=== PATIENT | female | born 1980 | race Caucasian/White ===

== ENCOUNTER 2022-12-25 10:53 | Outpatient (CLI) | payer BC, SELFPAY ==
[2022-12-25 14:28] LABS: Chloride* 104 mmol/L (96-114); Potassium* 4.2 mmol/L (3.6-5.1); Sodium* 140 mmol/L (135-149)
[2022-12-25 14:30] LABS: Cholesterol* 159 mg/dL (90-199)
[2022-12-25 14:31] LABS: Blood Urea Nitrogen* 22 mg/dL (5-24); Carbon Dioxide* 29 mmol/L (20-32); Estimated Glomerular Filt Rate 73 ml/min; Glucose* 87 mg/dL (60-115); Triglycerides* 130 mg/dL (40-149)
[2022-12-25 14:32] LABS: HDL Cholesterol* 55 mg/dL (>=50); LDL Cholesterol Calculated 78 mg/dL (<100)
== END 2022-12-25 10:54 | disposition home or self-care (01) ==
PROVIDERS: PCP Emergency Medicine; Visit Provider Emergency Medicine
DX: Z00.00 Encounter for general adult medical examination without abnormal findings (principal); Z13.6 Encounter for screening for cardiovascular disorders
CPT/HCPCS: 80048; 80061

== ENCOUNTER 2023-03-20 13:04 | Outpatient (CLI) | payer BC, SELFPAY ==
--- NOTE | 2023-03-20 13:20 | CRLHL7_ITS ---
For Patients: As a result of the Cures Act, medical imaging exams and procedure reports are released immediately into your electronic medical record. You may view this report before your referring provider. If you have questions, please contact your health care provider. BILATERAL SCREENING MAMMOGRAM WITH COMPUTER-AIDED DETECTION AND TOMOSYNTHESIS TECHNIQUE: CC and MLO views were obtained. These mammographic images have been obtained using full-field digital technique. These mammographic images were interpreted with the benefit of computer-aided detection. Breast tomosynthesis was used in this interpretation. COMPARISON FILM: None. This is a baseline study. FINDINGS: The breasts are heterogeneously dense, which may obscure small masses. IMPRESSION: There is no radiographic evidence for malignancy. ASSESSMENT: BI-RADS Category 1: Negative RECOMMENDATION: Routine screening mammogram in 1 year. A lay language report of this examination will be provided to the patient. VALENCIA DIANA M.D. Diagnostic/Nuclear Medicine Radiologist [email or web address] TRISHA:iman Transcribed: 03/21/2023, 2:[address]/Dictated by: Valencia Diana MD @ 03/21/2023 9:36:00 AM (Electronically Signed)
== END 2023-03-20 13:05 | disposition home or self-care (01) ==
LOC: MAMMO 13:04
PROVIDERS: PCP Emergency Medicine; Visit Provider Emergency Medicine
DX: Z12.31 Encounter for screening mammogram for malignant neoplasm of breast (principal); R92.2 Inconclusive mammogram
CPT/HCPCS: 77063; 77067

== ENCOUNTER 2024-01-04 09:17 | Outpatient (CLI) | payer BC, SELFPAY | END 2024-01-04 09:18 | disposition home or self-care (01) | LOC: NFLDREF 01-07 08:19 | PROVIDERS: PCP Emergency Medicine; Referring Provider Emergency Medicine; Visit Provider Emergency Medicine | DX: Z52.4 Kidney donor (principal); Z13.220 Encounter for screening for lipoid disorders; Z13.228 Encounter for screening for other metabolic disorders | CPT/HCPCS: 80048; 80061 ==

== ENCOUNTER 2024-02-06 10:12 | Outpatient (CLI) | payer BC, SELFPAY | END 2024-02-06 10:13 | disposition home or self-care (01) | LOC: NFLDREF 02-08 09:53 | PROVIDERS: PCP Emergency Medicine; Referring Provider Emergency Medicine; Visit Provider Emergency Medicine | DX: Z52.4 Kidney donor (principal) | CPT/HCPCS: 82565 ==

== ENCOUNTER 2024-05-28 09:35 | Outpatient (CLI) | payer BC, SELFPAY ==
--- NOTE | 2024-05-28 09:45 | CRLHL7_ITS ---
For Patients: As a result of the Century Cures Act, medical imaging exams and procedure reports are released immediately into your electronic medical record. You may view this report before your referring provider. If you have questions, please contact your health care provider. BILATERAL SCREENING MAMMOGRAM WITH COMPUTER-AIDED DETECTION AND TOMOSYNTHESIS TECHNIQUE: CC and MLO views were obtained. These mammographic images have been obtained using full-field digital technique. These mammographic images were interpreted with the benefit of computer-aided detection. Breast Tomosynthesis was used in this interpretation. COMPARISON FILM: 03/20/23. FINDINGS: The breasts are heterogeneously dense, which may obscure small masses. IMPRESSION: There is no radiographic evidence for malignancy. ASSESSMENT: BI-RADS Category 1: Negative RECOMMENDATION: Routine screening mammogram in 1 year. A lay language report of this examination will be provided to the patient. Khang Mckenna M.D. Diagnostic Radiologist [email or web address] SP/Dictated by: Khang Mckenna MD @ 05/28/2024 12:10:00 PM (Electronically Signed)
== END 2024-05-28 09:36 | disposition home or self-care (01) ==
LOC: MAMMO 09:36
PROVIDERS: PCP Emergency Medicine; Visit Provider Emergency Medicine
DX: Z12.31 Encounter for screening mammogram for malignant neoplasm of breast (principal); R92.2 Inconclusive mammogram
CPT/HCPCS: 77063; 77067

== ENCOUNTER 2024-12-30 08:39 | Outpatient (CLI) | payer BC, SELFPAY | END 2024-12-30 08:40 | disposition home or self-care (01) | PROVIDERS: PCP Emergency Medicine; Visit Provider Emergency Medicine | DX: Z13.6 Encounter for screening for cardiovascular disorders (principal); Z52.4 Kidney donor | CPT/HCPCS: 80048; 80061 ==

== ENCOUNTER 2025-06-02 13:41 | Outpatient (CLI) | payer BC, SELFPAY ==
--- NOTE | 2025-06-02 14:00 | CRLHL7_ITS ---
For Patients: As a result of the Century Cures Act, medical imaging exams and procedure reports are released immediately into your electronic medical record. You may view this report before your referring provider. If you have questions, please contact your health care provider. INDICATION: BILATERAL SCREENING MAMMOGRAM, ASYMPTOMATIC 44 Y/O FEMALE COMPARISON: 05/28/2024, 03/20/2023 TECHNIQUE: Digital mammogram in CC and MLO projections including computer-aided detection (CAD) and tomosynthesis. BREAST COMPOSITION: The breasts are heterogeneously dense, which may obscure small masses. FINDINGS: No suspicious findings. ASSESSMENT: BI-RADS 1 Negative RECOMMENDATION: Annual screening mammogram. A lay language report of this examination will be provided to the patient. Dictated by: Khang Mckenna MD @ 06/03/2025 13:37:19 (Electronically Signed)
== END 2025-06-02 13:42 | disposition home or self-care (01) ==
LOC: MAMMO 13:41
PROVIDERS: PCP Emergency Medicine
DX: Z12.31 Encounter for screening mammogram for malignant neoplasm of breast (principal); R92.333 Mammographic heterogeneous density, bilateral breasts
CPT/HCPCS: 77063; 77067

== ENCOUNTER 2025-08-05 14:04 | Outpatient (CLI) | payer BC, SELFPAY | END 2025-08-05 14:05 | disposition home or self-care (01) | LOC: NFLDREF 08-10 15:06 | PROVIDERS: Visit Provider Physician Assistant Medical | DX: N39.0 Urinary tract infection, site not specified (principal); B00.1 Herpesviral vesicular dermatitis | CPT/HCPCS: 87086 ==